=== PATIENT | female | born 1970 | race Two or more races ===

== ENCOUNTER 2024-01-25 13:19 | Outpatient (CLI) | payer OTHER | END 2024-01-25 13:20 | disposition home or self-care (01) | LOC: CSHMAMMO 13:19 | PROVIDERS: ATTEND Nurse Practitioner Family | DX: Z12.31 Encounter for screening mammogram for malignant neoplasm of breast (principal); N64.89 Other specified disorders of breast; Z91.89 Other specified personal risk factors, not elsewhere classified | CPT/HCPCS: 77063; 77067 ==

== ENCOUNTER 2024-02-03 08:20 | Outpatient (CLI) | payer OTHER | END 2024-02-03 08:21 | disposition home or self-care (01) | LOC: CSHMAMMO 08:20 | PROVIDERS: ATTEND Nurse Practitioner Family | DX: N63.25 Unspecified lump in the left breast, overlapping quadrants (principal); N64.89 Other specified disorders of breast; N63.12 Unspecified lump in the right breast, upper inner quadrant | CPT/HCPCS: 77066; G0279 ==